=== PATIENT | female | born 2000 | race Two or more races ===

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

== ENCOUNTER 2025-01-10 14:40 | Outpatient (CLI) | payer OTHER ==
[~2025-01-10 14:40] MED LIST: DICLOFENAC POTA50 MG PO
== END 2025-01-10 14:42 | disposition home or self-care (01) ==
LOC: SONOGRAMA 14:40
PROVIDERS: ATTEND Obstetrics & Gynecology
DX: N93.8 Other specified abnormal uterine and vaginal bleeding (principal)